=== PATIENT | male | born 1980 | race Caucasian/White ===

== ENCOUNTER 2021-06-03 03:20 | Outpatient (CLI) | payer OTHER, SELFPAY ==
[2021-06-03 08:23] LABS: ALT 31 U/L (16-63); AST 23 U/L (15-37); Albumin 4.3 g/dL (3.4-5.0); Alkaline Phosphatase 48 U/L (46-116); Anion Gap 10.4 mmol/L (3-11); BUN 25 mg/dL (7-18); Bilirubin, Total 0.6 mg/dL (0.2-1.0); CO2 26.6 mmol/L (21.0-32.0); CREATININE 0.9 mg/dL (0.70-1.30); Chloride 103 mmol/L (98-107); Glucose 88 mg/dL (74-106); Potassium 4.3 mmol/L (3.5-5.1); Sodium 140 mmol/L (136-145); Total Protein 7.8 g/dL (6.4-8.2)
[2021-06-03 12:14] LABS: Calculated LDL 153 mg/dL (<100); Cholesterol 277 mg/dL (<200); HDL Cholesterol 103 mg/dL (40-60); Triglyceride 106 mg/dL (<150)
== END 2021-06-03 03:21 | disposition home or self-care (01) ==
LOC: LBO 03:20
PROVIDERS: PCP Nurse Practitioner Adult Health; Visit Provider Nurse Practitioner Adult Health
DX: Z13.220 Encounter for screening for lipoid disorders (principal); Z13.1 Encounter for screening for diabetes mellitus; Z13.88 Encounter for screening for disorder due to exposure to contaminants
CPT/HCPCS: 36415; 80053; 80061; 83655

== ENCOUNTER 2024-04-19 10:36 | Outpatient (CLI) | payer OTHER, SELFPAY ==
[2024-04-19 12:04] LABS: C-Reactive Protein < 0.50 mg/dL (<or=0.5)
[2024-04-20 14:09] LABS: Lyme Ab w Rflx to Lyme Confirm Negative (Negative)
[2024-04-22 09:19] LABS: Anaplasma phagocytophilum Negative (Negative); B. miyamotoi PCR Negative (Negative); Babesia divergens/MO-1 Negative (Negative); Babesia duncani Negative (Negative); Babesia microti Negative (Negative); Ehrlichia chaffeensis Negative (Negative); Ehrlichia ewingii/canis Negative (Negative); Ehrlichia muris eauclairensis Negative (Negative)
== END 2024-04-19 10:37 | disposition home or self-care (01) ==
LOC: LBO 10:37
PROVIDERS: PCP Nurse Practitioner Adult Health; Visit Provider Emergency Medicine
DX: M25.59 Pain in other specified joint (principal)
CPT/HCPCS: 36415; 87798; 86140; 86618

== ENCOUNTER 2025-01-04 14:39 | Outpatient (CLI) | payer OTHER, SELFPAY ==
--- NOTE | 2025-01-04 14:30 | RT.EKG_ITS ---
APPROVED REPORT Exam: Resting ECG Reason for Exam: ED treatment Patient Location: O HR:56 bpm ECG Measurements Heart Rate 56 AXIS NE 173 P 67 QRSd 111 QRS 78 QT 407 T 50 QTc 393 Conclusion Sinus rhythm...normal P axis, V-rate 50- 99 Probable left atrial enlargement...P >50mS, <-0.10mV V1 Left ventricular hypertrophy...multiple voltage criteria
== END 2025-01-04 14:40 | disposition home or self-care (01) ==
LOC: DI.KIM 14:40
PROVIDERS: PCP Nurse Practitioner Adult Health; Visit Provider Nurse Practitioner
DX: I51.7 Cardiomegaly (principal)
CPT/HCPCS: 93010

== ENCOUNTER 2025-01-12 01:17 | Outpatient (CLI) | payer OTHER, SELFPAY ==
[2025-01-12 07:23] LABS: Abs Immature Grans 0.01 10^3/uL (0.0-0.06); Absolute Basophil Count 0.05 10^3/uL (0.0-0.2); Absolute Eosinophil Count 0.22 10^3/uL (0.0-0.7); Absolute Lymphocyte Count 1.25 10^3/uL (1.2-3.4); Absolute Monocyte Count 0.57 10^3/uL (0.1-0.8); Absolute Neutrophil Count 2.12 10^3/uL (1.2-6.7); Basophils % 1.2 %; Eosinophils % 5.2 %; HCT 43.9 % (40.0-50.0); HGB 14.6 g/dL (13.5-17.5); Immature Grans % 0.2 %; Lymphocytes % 29.6 %; MCHC 33.3 % (32.0-36.0); MCV 87 fL (80-95); Monocytes % 13.5 %; Neutrophils % 50.3 %; Platelet Count 227 10^3/uL (130-400); RBC 5.03 10^6/uL (4.36-5.78); RDW-SD 44.9 fL; WBC 4.22 10^3/uL (4.4-10.8)
[2025-01-12 08:03] LABS: ALT 34 U/L (16-63); AST 21 U/L (15-37); Alkaline Phosphatase 54 U/L (46-116); Anion Gap 5.1 mmol/L (3-11); BUN 17 mg/dL (7-18); Bilirubin, Total 0.64 mg/dL (0.2-1.0); CO2 30.9 mmol/L (21.0-32.0); Calcium 8.9 mg/dL (8.5-10.1); Calculated LDL 195 mg/dL (<100); Chloride 104 mmol/L (98-107); Cholesterol 304 mg/dL (<200); Estimated GFR 95.77 (mL/min/1.73m2); Glucose 100 mg/dL (74-106); HDL Cholesterol 97 mg/dL (40-60); Potassium 3.9 mmol/L (3.5-5.1); Sodium 140 mmol/L (136-145); TSH (W/Ref FT4) 1.05 uIU/mL (0.36-3.74); Total Protein 7.3 g/dL (6.4-8.2); Triglyceride 63 mg/dL (<150)
[2025-01-12 14:46] LABS: Hemoglobin A1C 5.6 % (<5.7)
[2025-01-21 09:13] LABS: Testosterone, Total 671 ng/dL (240-950)
== END 2025-01-12 01:18 | disposition home or self-care (01) ==
PROVIDERS: Absent Provider Nurse Practitioner Adult Health; PCP Nurse Practitioner Adult Health; Visit Provider Nurse Practitioner
DX: N52.9 Male erectile dysfunction, unspecified (principal); I10 Essential (primary) hypertension; E78.5 Hyperlipidemia, unspecified
CPT/HCPCS: 36415; 80053; 80061; 84402; 84403; 83036; 84443; 85025

== ENCOUNTER 2025-01-30 03:03 | Outpatient (CLI) | payer OTHER, SELFPAY ==
--- NOTE | 2025-01-30 08:30 | DI.US_ITS ---
APPROVED REPORT EXAM: Comprehensive 2D, Doppler, and color-flow Echocardiogram Patient Location: Out-Patient Research Associate Quality Control Qc: Hamlet Arias RDCS (AE) Indications: Abnormal EKG, ? LVH Other Information Study Quality: Good Conclusion Normal left ventricular wall thickness and chamber size. Ejection fraction is 65%. Wall motion is n ormal Normal right ventricular size and function Both atria are normal in size There is no structural or hemodynamically significant valvular disease Estimated right ventricular systolic pressure is 24 mmHg Wall motion Left Ventricle The left ventricle is normal size. Left ventricular systolic function is normal. The left ventricular ejection fraction is within the normal range. There is normal left ventricular wall thickness. There is normal LV segmental wall motion. The left ventricular diastolic function is normal. There is no v entricular septal defect visualized. LVEF is 65%. Right Ventricle The right ventricle is normal size. The right ventricular systolic function is normal. Atria The left atrium size is normal. The right atrium size is normal. The interatrial septum is intact wit h no evidence for an atrial septal defect. Aortic Valve The aortic valve is normal in structure. Aortic valve is trileaflet. There is no aortic valvular sten osis. No aortic regurgitation is present. Mitral Valve The mitral valve is normal in structure. No evidence of mitral valve stenosis. There is no mitral sonia ve regurgitation noted. Tricuspid Valve The tricuspid valve is normal in structure. There is no tricuspid valve stenosis. Trace tricuspid reg urgitation. The RVSP is 24.0 mmHg. Pulmonic Valve The pulmonary valve is normal in structure. There is no pulmonic valvular stenosis. There is no pulmo rogelio valvular regurgitation. Great Vessels The aortic root is normal in size. Ascending aorta is not well visualized. Aortic arch is not well vi sualized. IVC is normal in size and collapses >50% with inspiration. Pericardium There is no pericardial effusion. 2D Dimensions IVSD d PLAX 0.72 cm M: 0.6-1.2 Ao Root d 2.92 cm M: 3.1 - 3.7 LVPW d PLAX 0.65 cm M: 0.6 - 1.2 LVID d PLAX 5.31 cm M: 4.2 - 5.8 LVDs 3.39 cm M: 2.5 - 4.0 LV EF Teichholz 65.3 % FS 36.15 % LV EDV (Teich) 136.0 mL LV ESV (Teich) 47.1 mL Stroke Vol Index (Teich) 47.52 Auto EF LV EDV A4C 141.4 mL LV EDV A2C 157.3 mL LV EDV BP 149.1 mL LV ESV A4C 49.2 mL LV ESV A2C 59.0 mL LV ESV BP 53.5 mL LVEF(%) A4C 65.2 % LVEF(%) A2C 62.5 % LVEF(%) BP 64.2 % LV SV A4C 92.2 ml LV SV A2C 98.3 ml LV SV BP 95.7 ml LV CO A4C 5.6 L/min LV CO A2C 7.3 L/min LV CO BP 6.5 L/min HR A4C 61.02 BPM HR A2C 74.69 BPM LV EDV Index (BP) LA Volume LA Length A4C 4.8 cm LA Length A2C 3.8 cm LA Area A4C s 11.58 cm2 LA Area A2C s 11.36 cm2 LA Vol A4C A-L 23.86 mL LA Vol A2C A-L 29.18 mL LA Vol Biplane A-L 29.7 mL LA Vol/BSA A4C A-L LA Vol/BSA A2C A-L LA Vol/BSA BP A-L 15.9 mL/m2 LA Vol A4C MOD 22.4 mL LA Vol A2C MOD 27.3 mL LA Vol BP MOD 27.1 mL RA Volume RA Area A4C 11.7 cm2 RA ESV A4C (A-L) 28.7mL RA Vol/BSA A4C A-L RA Length A4C 4.0 cm RA ESV A4C (MOD) 27.3mL LV Diastology MV E' medial 0.130 (>0.07 m/s) MV E Vmax 0.66 (0.4-1.3 m/s) MV E/E' MED 5.08 (<14) MV A Vmax 0.55 (0.4-1.3 m/s) MV E' lateral 0.144 (>0.1 m/s) E/A Ratio 1.2 MV E/E' LAT 4.59 (<14) MV E' Average 0.137 m/s MV E/E'(average) 4.82 Aortic Valve AoV Vmax 1.25 m/s LVOT Vmax 1.08 m/s AoV Peak Grad 6.2 mmHg LVOT Peak Grad 4.7 mmHg AoV Area (Vmax) 3.10 cm2 LVOT VTI 0.236 m AoV VTI 0.260 m LVOT Mean Grad 2.5 mmHg AoV Mean Rony. 0.83 m/s LVOT SV 84.06 mL AoV Mean Grad 3.2 mmHg LVOT Diam s 2.10 cm AoV Area (VTI) 3.24 cm2 AV Regurg Peak Gr. 6.22 mmHg Velocity Ratio 0.86 Mitral Valve MV DT 134 (160-240 msec) Pulmonary Valve PV Vmax 1.16 (0.5-1.5 m/s) RVOT Vmax 0.77 m/s PV Peak Grad 5.4 mmHg RVOT Peak Gr. 2.4 mmHg PV Mean Rony 0.77 m/s RVOT VTI 0.169 m PV Mean Grad 2.8 mmHg RVOT Mean Gr. 1.3 mmHg Tricuspid Valve RA Pressure 3.00 mmHg TR Vmax 2.29 m/s TR Peak Grad 20.9 mmHg RVSP (TR) 24.0 mmHg
== END 2025-01-30 03:23 ==
LOC: DI 03:03
PROVIDERS: PCP Nurse Practitioner Adult Health; Visit Provider Internal Medicine Cardiovascular Disease
DX: R94.31 Abnormal electrocardiogram [ECG] [EKG] (principal)
CPT/HCPCS: 93306